=== PATIENT | male | born 1940 | race Caucasian/White ===

== ENCOUNTER → 2017-05-27 | Outpatient (CLI) | payer MEDICARE ==
[~2017-05-27] MED LIST: DEPAKOTE ER 50500 MG PO; HCTZ; LIPITOR 10MG10 MG PO; [UNRECOGNIZED DRUG - OTHER]
== END ==
LOC: COL.RAD 09:30
DX: C85.90 Non-Hodgkin lymphoma, unspecified, unspecified site (principal); R22.2 Localized swelling, mass and lump, trunk; I25.10 Atherosclerotic heart disease of native coronary artery without angina pectoris; R59.0 Localized enlarged lymph nodes; M25.452 Effusion, left hip; N32.89 Other specified disorders of bladder
CPT/HCPCS: Q9967

== ENCOUNTER → 2019-01-10 | Outpatient (CLI) | payer MEDICARE | LOC: ZCOL.LAB 16:48 | DX: T81.40XA Infection following a procedure, unspecified, initial encounter (principal) ==

== ENCOUNTER 2019-03-02 21:58 | Emergency (ER) | payer MEDICARE ==
[~2019-03-02] VITALS: Ht 172.7 cm; Wt 73.2 kg
[2019-03-02 22:12] VITALS: TEMP 99.5
[2019-03-02 22:53] LABS: BASO % 0.3 % (0.0-2.0); EOS % 0.1 % (0-4.0); GRAN # 7.8 (1.4-6.5); GRAN % 83.1 % (42.2-75.2); HEMATOCRIT 39.6 % (42.0-52.0); HEMOGLOBIN 12.9 g/dl (13.5-18.0); LYMPH # 0.3 (1.2-3.4); LYMPH % 2.8 % (20.0-51.0); MEAN CELL VOLUME 102 fl (80.0-100.0); MEAN CORPUSCULAR HEMOGLOBIN 33 pg (27.0-31.0); MEAN CORPUSCULAR HGB CONC 33 g/dl (33.0-37.0); MEAN PLATELET VOLUME 9.9 fl (7.4-10.4); MONO # 1.3 (0.1-0.6); MONO % 13.5 % (1.7-9.3); PLATELET COUNT 149 K/mm3 (130-400); REDCELL DISTRIBUTION WIDTH-CV 13.8 % (11.5-14.5)
[2019-03-02] MEDS ORDERED: TENORMIN 2525 MG/TAB PO (23:00)
[2019-03-02] MEDS ORDERED: PAXIL 20MG20 MG PO (23:01)
[2019-03-02] MEDS ORDERED: ZOCOR 20MG20 MG PO (23:01)
[2019-03-02] MEDS ORDERED: ARICEPT10 MG PO (23:01)
[2019-03-02] MEDS ORDERED: NAMENDA 10MG TA10 MG PO (23:02)
[2019-03-02] MEDS ORDERED: DEPAKOTE500 MG PO (23:02)
[2019-03-02 23:05] LABS: ALANINE AMINOTRANSFERASE < 6 U/L (21-72); ALBUMIN 3.4 gm/dL (3.5-5.0); ALKALINE PHOSPHATASE 52 U/L (50-136); ANION GAP 10 mmol/L (7-16); AST,SGOT 21 U/L (15-37); BILIRUBIN,TOTAL 0.4 mg/dL (0.0-1.0); BLOOD UREA NITROGEN 39 mg/dL (9-20); C-REACTIVE PROTEIN 4.9 mg/dL (0.0-0.9); CALCIUM 8.4 mg/dL (8.4-10.2); CARBON DIOXIDE 20 mmol/L (22-30); CHLORIDE 108 mmol/L (98-107); CREATININE, serum 1.47 (0.66-1.25); GLUCOSE 150 mg/dL (74-106); POTASSIUM 4.4 mmol/L (3.4-5.0); SODIUM 138 mmol/L (137-145); TOTAL PROTEIN 6.3 gm/dL (6.4-8.2)
[2019-03-03 00:06] VITALS: BP 130/64
[2019-03-03] MEDS ORDERED: VANCOCIN H125 MG/CAP PO (01:53)
[2019-03-03 02:04] VITALS: PULSE 68
== END 2019-03-03 02:04 | disposition home or self-care (01) ==
LOC: COL.ER 21:58
PROVIDERS: Emergency Medicine
DX: A04.72 Enterocolitis due to Clostridium difficile, not specified as recurrent (principal); I10 Essential (primary) hypertension; E78.00 Pure hypercholesterolemia, unspecified
CPT/HCPCS: J7030

== ENCOUNTER → 2019-06-26 | Outpatient (CLI) | payer MEDICARE ==
[~2019-06-26] MED LIST changes: +ARICEPT10 MG PO; +DEPAKOTE500 MG PO; +NAMENDA 10MG TA10 MG PO; +PAXIL 20MG20 MG PO; +TENORMIN 2525 MG/TAB PO; +VANCOCIN H125 MG/CAP PO; +ZOCOR 20MG20 MG PO
== END ==
LOC: COL.RAD 11:00
DX: Z01.812 Encounter for preprocedural laboratory examination (principal); C82.08 Follicular lymphoma grade I, lymph nodes of multiple sites
CPT/HCPCS: Q9967

== ENCOUNTER → 2020-02-27 | Outpatient (CLI) | payer MEDICARE ==
[~2020-02-27] MED LIST changes: +ASPIRIN 81M81 MG/TA2 PO; +MOBIC15 MG PO; +SEROQUEL 1100 MG/TAB PO; +TYLENOL 325MG325 MG PO
== END ==
LOC: COL.RAD 08:49
DX: C82.08 Follicular lymphoma grade I, lymph nodes of multiple sites (principal); N40.0 Benign prostatic hyperplasia without lower urinary tract symptoms; N32.89 Other specified disorders of bladder
CPT/HCPCS: Q9967

== ENCOUNTER → 2023-10-01 | Outpatient (CLI) | payer MEDICARE | LOC: COL.RAD 11:41 | PROVIDERS: Internal Medicine | DX: C82.08 Follicular lymphoma grade I, lymph nodes of multiple sites (principal) | CPT/HCPCS: Q9967 ==

== ENCOUNTER 2023-11-08 11:59 | Emergency (ER) | payer MEDICARE ==
[~2023-11-08] VITALS: Ht 167.6 cm; Wt 65.9 kg
[2023-11-08 13:45] LABS: HEMATOCRIT 37.3 % (42.0-52.0); HEMOGLOBIN 12.8 g/dl (13.5-18.0); MEAN CELL VOLUME 100 fl (80.0-100.0); MEAN CORPUSCULAR HEMOGLOBIN 34 pg (27-31); MEAN CORPUSCULAR HGB CONC 34 g/dl (33.0-37.0); MEAN PLATELET VOLUME 9.3 fl (7.4-10.4); PLATELET COUNT 164 K/mm3 (130-400); RED BLOOD COUNT 3.75 M/mm3 (4.20-5.60); REDCELL DISTRIBUTION WIDTH-CV 13.6 % (11.5-14.5)
[2023-11-08 13:57] LABS: ALBUMIN 3.6 gm/dL (3.4-4.8); BILIRUBIN,TOTAL 0.3 mg/dL (0.2-1.2); CALCIUM 10.2 mg/dL (8.4-10.2); CREATININE, serum 1.23 mg/dL (0.72-1.25); POTASSIUM 5.4 mmol/L (3.5-4.5); TOTAL PROTEIN 6.6 gm/dL (6.2-8.1)
[2023-11-08 13:59] LABS: BAND 3 % (0-10); BASOPHIL 1 % (0-2); LYMPHOCYTE 2 % (20.0-51.0); NEUTROPHILS 92 % (42.0-75.2); PLATELET ESTIMATE NORMAL (NORMAL)
--- NOTE | 2023-11-08 15:24 | NUR ---
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 LORETTA and SW Student met with patient and patient's to complete an assessment. Patient lives in [place] with his . PCP is Dr. Costello and his oncologist is Dr. Aldridge. Pharmacy is [facility]. No issues affording medications. Patient has Medicare A & B and [facility]. DPOA-HC is patient's son, José Miguel, P# [phone]. Daughter is Rebecca, P# [phone]. No DME. LORETTA discussed home health services as patient has fallen recently. Patient's reports they previoulsy used [facility], they would like to continue using their services if possible but if they are unable to accept their second choice is [facility]. LORETTA provided Medicare.gov list of home health and nursing homes in case it comes to the point that patient is unable to be cared for in the home. LORETTA updated patient's nurse. LORETTA left a voicemail with patient's PCP social services counselor to determine if they would be able to write home health orders to [facility]. LORETTA secure emailed home health referral to [facility] and explained it was awaiting home health orders.
[2023-11-08 16:00] VITALS: BP 188/90; PULSE 60
--- NOTE | 2023-11-09 13:56 | NUR ---
beam worker contacted LORETTA Joseph at [facility], whom expressed they would have to schedule an appointment for patient's PCP to see him for home health orders. [facility] stated they would look at scheduling this in the next week. LORETTA was notified by [facility] that they would be able to accept but was waiting on PCP home health orders.
== END 2023-11-08 16:00 | disposition home or self-care (01) ==
LOC: COL.ER 11:59
PROVIDERS: Family Medicine
DX: Z04.3 Encounter for examination and observation following other accident (principal); C85.91 Non-Hodgkin lymphoma, unspecified, lymph nodes of head, face, and neck; F03.90 Unspecified dementia, unspecified severity, without behavioral disturbance, psychotic disturbance, mood disturbance, and anxiety